=== PATIENT | male | born 1990 | race African-American/Black ===

== ENCOUNTER 2020-11-10 05:22 | Emergency (ER) | payer SELFPAY | END 2020-11-10 05:55 | disposition home or self-care (01) | LOC: CSHERS 05:22 | DX: S63.612A Unspecified sprain of right middle finger, initial encounter (principal); F17.210 Nicotine dependence, cigarettes, uncomplicated; Y99.0 Civilian activity done for income or pay; X50.3XXA Overexertion from repetitive movements, initial encounter | CPT/HCPCS: 99283 ==

== ENCOUNTER 2025-03-25 20:51 | Emergency (ER) | payer SELFPAY ==
[2025-03-25] MEDS ORDERED: HYDROcodone/Acetaminophen 5/325 mg Tablet ONE (21:37)
== END 2025-03-25 22:04 | disposition home or self-care (01) ==
LOC: CSHERS 20:51
DX: K08.89 Other specified disorders of teeth and supporting structures (principal); F17.210 Nicotine dependence, cigarettes, uncomplicated
CPT/HCPCS: 99282

== ENCOUNTER 2025-05-02 02:10 | Emergency (ER) | payer SELFPAY | END 2025-05-02 03:58 | disposition home or self-care (01) | LOC: CSHERS 02:10 | DX: R11.2 Nausea with vomiting, unspecified (principal); F17.210 Nicotine dependence, cigarettes, uncomplicated; Z20.822 Contact with and (suspected) exposure to COVID-19 | CPT/HCPCS: 87428; 99284 ==